=== PATIENT | male | born 1975 | race Caucasian/White ===

== ENCOUNTER → 2023-11-07 09:33 | Outpatient (BNVA) | payer BC, SELFPAY | PROVIDERS: Family Provider Family Medicine; PCP Nurse Practitioner; Visit Provider Nurse Practitioner | DX: E11.9 Type 2 diabetes mellitus without complications (principal); Z12.5 Encounter for screening for malignant neoplasm of prostate | CPT/HCPCS: 80053; 80061; 83036; 84443; 85025; G0103 ==

== ENCOUNTER → 2024-02-19 09:04 | Outpatient (BNVA) | payer BC, SELFPAY | PROVIDERS: Family Provider Family Medicine; PCP Nurse Practitioner; Referring Provider Nurse Practitioner; Visit Provider Nurse Practitioner | DX: R73.09 Other abnormal glucose (principal) | CPT/HCPCS: 83036 ==

== ENCOUNTER → 2024-05-07 09:10 | Outpatient (BNVA) | payer BC, SELFPAY | PROVIDERS: Family Provider Family Medicine; PCP Nurse Practitioner; Visit Provider Nurse Practitioner | DX: Z86.718 Personal history of other venous thrombosis and embolism (principal); R53.83 Other fatigue | CPT/HCPCS: 82607 ==

== ENCOUNTER → 2024-05-12 11:33 | Outpatient (BNVA) | payer BC, SELFPAY | PROVIDERS: Family Provider Family Medicine; PCP Nurse Practitioner; Visit Provider Nurse Practitioner | DX: R68.89 Other general symptoms and signs (principal); R50.9 Fever, unspecified; K52.9 Noninfective gastroenteritis and colitis, unspecified | CPT/HCPCS: 87400; 87880 ==

== ENCOUNTER → 2024-09-16 10:23 | Outpatient (BNVA) | payer BC, SELFPAY | PROVIDERS: Family Provider Family Medicine; PCP Nurse Practitioner; Visit Provider Nurse Practitioner | DX: E11.9 Type 2 diabetes mellitus without complications (principal); R19.7 Diarrhea, unspecified | CPT/HCPCS: 80053; 83036; 84443; 85025; 85651; 86140 ==

== ENCOUNTER 2024-11-25 11:07 | Day surgery (SDC) | payer BC, SELFPAY ==
[2024-11-25 11:28] VITALS: BP 96/72; PULSE 86; RESP 17; TEMP 36.1; O2SAT 100; BMI 25.0
[2024-11-25] MEDS: sodium chloride 0.9% 1,000 ML 15 ML IV (11:35)
[2024-11-25 11:39] LABS: Glucose Point of Care 246 mg/dL (70-110)
--- NOTE | 2024-11-25 11:46 | P.ANESASSM_ITS ---
Pre-Anesthetic Assessment Height/Weight: Height 1.91 m Weight 90.718 kg Temp Pulse Resp BP Pulse Ox O2 Del Method 97.0 F L 86 17 96/72 100 Room Air 11/25/24 11:28 11/25/24 11:28 11/25/24 11:28 11/25/24 11:28 11/25/24 11:28 11/25/24 11:28 Preop Diagnosis: screening Operation Date: 11/25/24 12:45 Proposed Procedures p Colonoscopy [id number] G0105 Z12.11(Not Applicable) - Gallo Camejo MD Familial anesthetic complications: none Was Beta Rosendo taken within 24 hours: N/A Was Clonidine taken within 24 hours: N/A Last intake: Intake Last Liquid Date 11/24/24 Last Liquid Time 20:00 Last Solid Date 11/24/24 Last Solid Time 18:00 Social Tobacco and No alcohol 1 PPD pack(s) per day Exam alert, oriented x 3, clear to auscultation bilaterally and regular rate & rhythm Airway Submandibular: within normal limits Cervical ROM: within normal limits Mallampati: Class II Dentition: false History/ROS No significant history except as noted and No significant complaints Pulmonary Asthma, Exertional Dyspnea and Shortness of Breath CV/HEM Peripheral Vascular Disease HX of blood clots None reported Hepatic None reported GI None reported Metabolic Diabetes Mellitus [facility] [place] None reported Neuropsych None reported Anesthetic Plan ASA status: 3 Anesthesia: MAC Risk of > 500 ml blood loss (7ml/kg in children): No Medications/Allergies Home Medications ?Medication ?Instructions ?Recorded ?Confirmed ?Last Taken ?Type rivaroxaban 20 mg tablet (Xarelto) 20 mg PO DAILY #90 tabs 09/16/24 11/25/24 11/19/24 Rx sitagliptin phosphate 25 mg tablet 25 mg PO DAILY #30 tabs 09/16/24 11/25/24 11/24/24 Rx (Januvia) dicyclomine 20 mg tablet 20 mg PO BID PRN abdominal p ain 10/17/24 11/25/24 11/20/24 Rx #60 tabs Allergies Allergy/AdvReac Type Severity Reaction Status Date / Time No Known Allergies Allergy Verified 11/25/24 11:20 Current Medications Generic Name Dose Route Start Last Admin Trade Name Freq PRN Reason Stop Dose Admin Sodium Chloride 1,000 mls @ 15 mls/hr 11/25/24 11:13 11/25/24 11:35 Sodium Chloride 0.9% IV 11/26/24 11:12 15 mls/hr .Q24H PRN Administration COLONOSCOPY FLUIDS PFSH Anesthesia Medical History Chronic nasal congestion Social History Smoking and tobacco/nicotine status: current every day tobacco/nicotine user
--- NOTE | 2024-11-25 11:47 | W.PM.OPSUD ---
Surgery/Procedure H&P Update DATE OF PROCEDURE: November 25, 2024 DATE H&P PERFORMED: 11/07/24 H&P UPDATE INFORMATION: I have reviewed H&P completed within last 30 days, I have examined patient prior to procedure and No changes to prior documentation PLANNED PROCEDURE: Operation Date: 11/25/24 12:45 Proposed Procedures p Colonoscopy [id number] G0105 Z12.11(Not Applicable) - Gallo Camejo MD
[2024-11-25 12:00] VITALS: BP 117/81; PULSE 70; RESP 18; TEMP 36.2; O2SAT 98
[2024-11-25 12:16] VITALS: BP 109/75; PULSE 75; RESP 18; TEMP 36.2; O2SAT 99
--- NOTE | 2024-11-25 12:37 | ANE.PACU2 ---
Inpatient post-anesthesia follow up: Airway intact: Yes Vital signs: Temperature 97.1 F Pulse Rate 75 Respiratory Rate 18 Blood Pressure 109/75 Pulse Oximetry 99 Oxygen Delivery Me thod Room Air Oxygen Flow Rate Fraction of Inspir ed Oxygen Hydration adequate: Yes Nausea and vomiting: No Pain level: 1 Mental status: Baseline
== END 2024-11-25 12:30 | disposition home or self-care (01) ==
PROVIDERS: PCP Nurse Practitioner; Visit Provider Student in an Organized Health Care Education/Training Program
PROC: 0DJD8ZZ Inspection of Lower Intestinal Tract, Via Natural or Artificial Opening Endoscopic (ICD-10-PCS; CPT 45378; principal; 2024-11-25 12:45)
DX: Z12.11 Encounter for screening for malignant neoplasm of colon (principal); E11.51 Type 2 diabetes mellitus with diabetic peripheral angiopathy without gangrene; F17.210 Nicotine dependence, cigarettes, uncomplicated; Z79.01 Long term (current) use of anticoagulants; Z79.84 Long term (current) use of oral hypoglycemic drugs
CPT/HCPCS: 36416; 45378; 82962; J2704; J7030; J9999

== ENCOUNTER → 2024-12-17 09:11 | Outpatient (BNVA) | payer BC, SELFPAY | PROVIDERS: Family Provider Nurse Practitioner; PCP Nurse Practitioner; Referring Provider Nurse Practitioner; Visit Provider Nurse Practitioner | DX: E11.9 Type 2 diabetes mellitus without complications (principal) | CPT/HCPCS: 83036 ==

== ENCOUNTER → 2025-01-16 09:25 | Outpatient (BNVA) | payer BC, SELFPAY | PROVIDERS: Family Provider Nurse Practitioner; PCP Nurse Practitioner; Visit Provider Nurse Practitioner | DX: E11.9 Type 2 diabetes mellitus without complications (principal) | CPT/HCPCS: 83036 ==

== ENCOUNTER → 2025-04-22 10:16 | Outpatient (BNVA) | payer BC, SELFPAY | PROVIDERS: Family Provider Nurse Practitioner; PCP Nurse Practitioner; Visit Provider Nurse Practitioner | DX: E11.9 Type 2 diabetes mellitus without complications (principal) | CPT/HCPCS: 80053; 83036 ==